=== PATIENT | male | born 1995 | race Caucasian/White ===

== ENCOUNTER 2017-07-02 20:56 | Emergency (ER) | payer OTHER ==
[2017-07-02 21:02] VITALS: BP 115/91; PULSE 120; RESP 20; TEMP 98.1; O2SAT 94
[2017-07-02] MEDS ORDERED: IBUPROFEN 600 MG TAB PO ONE (21:08)
--- NOTE | 2017-07-02 21:09 | EDPHY ---
H & P Stated Complaint: dislocated left pinky Time Seen by Provider: 07/02/17 21:07 HPI/ROS: Chief Complaint: Dislocated left 5th finger HPI: Patient presents to the ED with a dislocated left 5th finger. He was playing soccer and was hit by a soccer ball dislocating the finger. He denies additional injury. He dislocated his PIP joint. REVIEW OF SYSTEMS: Neuro: no headache, numbness, weakness Musculoskeletal: as above Skin: no abrasion or lacerations Source: Patient Exam Limitations: No limitations - Personal History Current Tetanus/Diphtheria Vaccine: Yes Current Tetanus Diphtheria and Acellular Pertussis (TDAP): Yes - Medical/Surgical History Hx Asthma: No Hx Chronic Respiratory Disease: No Hx Diabetes: No Hx Cardiac Disease: No Hx Renal Disease: No Hx Cirrhosis: No Hx Alcoholism: No Hx HIV/AIDS: No Hx Splenectomy or Spleen Trauma: No Other PMH: right shoulder surgery, staph infection - Social History Smoking Status: Never smoked - Physical Exam Exam: General: No acute distress Left hand: Dislocated left PIP joint Neuro: Sensation intact to light touch Vascular: Normal capillary refill Constitutional: Initial Vital Signs Temperature (C) 36.7 C 07/02/17 21:00 Heart Rate 120 H 07/02/17 21:00 Respiratory Rate 20 07/02/17 21:00 Blood Pressure 115/91 H 07/02/17 21:00 O2 Sat (%) 94 07/02/17 21:00 O2 Delivery Mode Room Air Allergies/Adverse Reactions: No Known Allergies Allergy (Verified 07/02/17 21:02) Home Medications: Medication Instructions Recorded NK [No Known Home Meds] 07/02/17 Medical Decision Making - Diagnostics Imaging Results: Left finger x-ray: Images reviewed by myself, impression: Negative for acute fracture Procedures: Procedure: Dislocation reduction. Indication: Finger dislocation The left 5th finger was reduced in the usual fashion without complications. Post reduction the patient's neurovascular exam is normal. Post reduction x- ray demonstrates reduction of the joint to the anatomic position. The procedure was performed by myself. ED Course/Re-evaluation: The patient presents to the ED with a dislocated left 5th finger. It was easily reduced. The patient was noted to be neurologically intact after the reduction. Post reduction x-rays as interpreted by myself demonstrate no obvious fracture. The patient will be discharged home with customary aftercare instructions and return precautions. Departure - Departure Disposition: Home, Routine, Self-Care Clinical Impression: Dislocation of left little finger Condition: Good Instructions: Finger Dislocation (ED) Additional Instructions: 1. Please follow up with orthopedic surgeon you have been referred to for any persistent pain, immobility, perceived instability or other concerns. 2. Take Ibuprofen or Motrin 600 mg by mouth three times a day. Referrals: Reji Orantes MD [Medical Doctor] - As per Instructions
== END 2017-07-02 21:37 | disposition home or self-care (01) ==
PROC: 0RSXXZZ Reposition Left Finger Phalangeal Joint, External Approach (ICD-10-PCS; principal; 2017-07-02)
DX: S63.257A Unspecified dislocation of left little finger, initial encounter (principal); W21.02XA Struck by soccer ball, initial encounter; Y99.8 Other external cause status; Y93.66 Activity, soccer
CPT/HCPCS: L3925